=== PATIENT | male | born 1960 | race Caucasian/White ===

== ENCOUNTER 2017-01-05 07:51 | Day surgery (SDC) | payer BC ==
[~2017-01-05] VITALS: Ht 170.2 cm; Wt 145.1 kg
[2017-01-05] MEDS ORDERED: PROPOFOL 200MG/ 20ML VIAL (DIPRIVAN) IV ONE (07:52)
[2017-01-05] MEDS ORDERED: ONDANSETRON HCL 4 MG/2 ML VIAL IVP ONE (07:52)
[2017-01-05] MEDS ORDERED: LR 1,000 ML IV.SOLN IV ONE (07:52)
[2017-01-05] MEDS ORDERED: MIDAZOLAM HCL 5 MG/ML VIAL (VERSED) IV ONE (07:52)
[2017-01-05] MEDS ORDERED: fentaNYL CITRATE/PF 100 MCG/2 ML AMP IVP ONE (07:52)
[2017-01-05] MEDS ORDERED: LR 1,000 ML IV SCH (09:48)
[2017-01-05] MEDS ORDERED: MORPHINE 4 MG/ML INJ. SYRINGE IVP PRN ×3 (10:00)
[2017-01-05] MEDS ORDERED: METOCLOPRAMIDE HCL 10 MG/2 ML VIAL IVP PRN (10:00)
[2017-01-05 10:57] VITALS: BP_SYST 133
== END 2017-01-05 11:15 | disposition home or self-care (01) ==
LOC: SDS 07:51 → SMU 07:52 → SDS 11:15
PROVIDERS: ATTEND Colon & Rectal Surgery
DX: Z86.010 Personal history of colon polyps (principal); K63.5 Polyp of colon; I10 Essential (primary) hypertension; E66.9 Obesity, unspecified; M17.10 Unilateral primary osteoarthritis, unspecified knee; G47.33 Obstructive sleep apnea (adult) (pediatric); G62.9 Polyneuropathy, unspecified; Z98.890 Other specified postprocedural states; Z90.49 Acquired absence of other specified parts of digestive tract; Z79.899 Other long term (current) drug therapy
CPT/HCPCS: 45380; 88305; J2250; J2405; J2704; J3010; J7120